=== PATIENT | male | born 1960 | race Caucasian/White ===

== ENCOUNTER 2020-12-21 15:34 | Emergency (ER) | payer OTHER, MEDICARE ==
[~2020-12-21] VITALS: Ht 190.5 cm; Wt 100.0 kg
[~2020-12-21 15:34] MED LIST: LORA-269 PO; LYR75C PO
[2020-12-21 18:52] LABS: BASOPHILS # (AUTO) 0.1 X10'3 (0-0.2); EOSINOPHILS # (AUTO) 0.1 X10'3 (0-0.9); EOSINOPHILS % (AUTO) 2.6 % (0-6); MEAN CORPUSCULAR HEMOGLOBIN 33.5 PG (27.0-31.0); MEAN CORPUSCULAR HGB CONC 34.4 g/dL (33.0-36.5); MEAN CORPUSCULAR VOLUME 97.4 FL (78-98); MEAN PLATELET VOLUME 7.3 FL (7.4-10.4); MONOCYTES # (AUTO) 0.8 X10'3 (0-0.9); MONOCYTES % (AUTO) 21.5 % (2-12); NEUTROPHILS # (AUTO) 1.7 X10'3 (1.8-7.7); NEUTROPHILS % (AUTO) 45.9 % (42-75); PLATELET COUNT 192 X10'3 (140-440); WHITE BLOOD COUNT 3.6 X10'3 (4.5-11.0)
[2020-12-21 19:13] LABS: ALANINE AMINOTRANSFERASE 180 U/L (12-78); ALBUMIN 3.5 G/DL (3.4-5.0); ALBUMIN/GLOBULIN RATIO 1.1 (1.1-1.5); ALKALINE PHOSPHATASE 145 IU/L (46-116); ANION GAP 11 (8-16); ASPARTATE AMINO TRANSFERASE 203 U/L (10-37); BILIRUBIN,TOTAL 0.5 MG/DL (0.1-1.0); BLOOD UREA NITROGEN 3 MG/DL (7-18); BUN/CREATININE RATIO 4.2 (5.4-32.0); CALCIUM 8.4 MG/DL (8.5-10.1); CHLORIDE 103 MMOL/L (99-107); CREATININE 0.72 MG/DL (0.60-1.10); GLUCOSE 116 MG/DL (70-104); POTASSIUM 3.5 MMOL/L (3.5-5.1); SODIUM 139 MMOL/L (135-145); TOTAL CARBON DIOXIDE 25.4 MMOL/L (24-32); TOTAL PROTEIN 6.8 G/DL (6.4-8.2); eGFR > 90 ML/MIN
[2020-12-21 19:34] LABS: CLARITY,URINE CLEAR (Clear); COLOR,URINE YELLOW (Yellow); GLUCOSE, URINE NEGATIVE (Neg); KETONES,URINE NEGATIVE (Neg); LEUKOCYTE ESTERASE ,URINE NEGATIVE (Neg); NITRITES, URINE NEGATIVE (Neg); OCCULT BLOOD,URINE NEGATIVE (Neg); PH,URINE 5.5 (4.8-8.0); PROTEIN,URINE NEGATIVE (Neg); UROBILINOGEN,URINE 0.2 E.U/dL (0.2-1.0)
[2020-12-21 19:35] LABS: UA COLLECTION TYPE URINAL
--- NOTE | 2020-12-21 19:36 | NUR ---
DIMITRI ROSENBERG AT BEDSIDE
[2020-12-21] MEDS ORDERED: pregabalin 75mg capsule PO ONE (19:50)
[2020-12-21] MEDS ORDERED: potassium Cl 20 mEq SR tablet PO ONE (19:50)
[2020-12-21] MEDS ORDERED: magnesium oxide 400mg tablet PO ONE (19:50)
[2020-12-21] MEDS ORDERED: chlordiazePOXIDE 25mg capsule PO ONE (19:50)
[2020-12-21] MEDS ORDERED: folic acid 1mg tablet PO ONE (19:50)
[2020-12-21 19:57] LABS: LARGE PLATELETS FEW; LYMPHOCYTES % (MANUAL) 24 % (21-51); NEUTROPHILS % (MANUAL) 55 % (42-75); TOTAL CELLS COUNTED 100
[2020-12-21 19:58] LABS: EOSINOPHILS % (MANUAL) 1 % (0-6); MONOCYTES % (MANUAL) 20 % (2-12); PLATELET ESTIMATE NORMAL
[2020-12-21 20:00] LABS: URINE AMPHETAMINE SCREEN NEGATIVE (Neg); URINE BARBITUATE SCREEN NEGATIVE (Neg); URINE BENZODIAZEPINES SCREEN NEGATIVE (Neg); URINE CANNABINOID SCREEN NEGATIVE (Neg); URINE COCAINE SCREEN NEGATIVE (Neg); URINE METHADONE SCREEN NEGATIVE (Neg); URINE OPIATE SCREEN NEGATIVE (Neg); URINE PHENCYCLIDINE SCREEN NEGATIVE (Neg)
[2020-12-21] MEDS ORDERED: thiamine 100mg tablet PO ONE (20:10)
[2020-12-21] MEDS ORDERED: CHLO25CA10 PO (20:11)
[2020-12-21 20:27] VITALS: BP 126/91
== END 2020-12-21 20:29 | disposition home or self-care (01) ==
LOC: ER 15:34
DX: F10.129 Alcohol abuse with intoxication, unspecified (principal); I10 Essential (primary) hypertension; I25.2 Old myocardial infarction; Z98.890 Other specified postprocedural states; Z79.899 Other long term (current) drug therapy; Y90.9 Presence of alcohol in blood, level not specified
CPT/HCPCS: 36415; 80053; 80305; 80320; 81003; 83735; 84443; 85007; 85025; 99284

== ENCOUNTER 2021-02-18 02:51 | Emergency (ER) | payer OTHER, MEDICARE ==
[~2021-02-18] VITALS: Ht 190.5 cm; Wt 97.7 kg
[~2021-02-18 02:51] MED LIST changes: +CHLO25CA10 PO
[2021-02-18 02:56] VITALS: BP 158/101
[2021-02-18] MEDS ORDERED: acetaminophen 325mg tablet PO ONE (03:30)
[2021-02-18] MEDS ORDERED: ketorolac tromethamine 15mg/ml inj. IM ONE (03:30)
== END 2021-02-18 03:42 | disposition home or self-care (01) ==
LOC: ER 02:52
DX: S93.402A Sprain of unspecified ligament of left ankle, initial encounter (principal); I10 Essential (primary) hypertension; I25.2 Old myocardial infarction; Z98.890 Other specified postprocedural states; Z87.891 Personal history of nicotine dependence; W19.XXXA Unspecified fall, initial encounter; Z91.81 History of falling; Y93.89 Activity, other specified; Y92.89 Other specified places as the place of occurrence of the external cause; Y99.8 Other external cause status
CPT/HCPCS: 73610; 96372; 99284; J1885

== ENCOUNTER 2021-04-26 18:11 | Emergency (ER) | payer MEDICARE, OTHER ==
[~2021-04-26] VITALS: Ht 190.5 cm; Wt 100.0 kg
[2021-04-26 18:12] VITALS: BP 127/93
[2021-04-26] MEDS ORDERED: normal saline 1000ML IV soln IVB ONE (18:35)
[2021-04-26 19:28] LABS: BASOPHILS # (AUTO) 0.1 X10'3 (0-0.2); BASOPHILS % (AUTO) 1.4 % (0-1); EOSINOPHILS # (AUTO) 0.4 X10'3 (0-0.9); EOSINOPHILS % (AUTO) 8.4 % (0-6); HEMATOCRIT 39.1 % (42.0-52.0); HEMOGLOBIN 13.3 g/dl (14.0-17.9); LYMPHOCYTES # (AUTO) 2.2 X10'3 (1.1-4.8); LYMPHOCYTES % (AUTO) 49.1 % (21-51); MEAN CORPUSCULAR HEMOGLOBIN 32.9 PG (27.0-31.0); MEAN CORPUSCULAR HGB CONC 34.1 g/dL (33.0-36.5); MEAN CORPUSCULAR VOLUME 96.4 FL (78-98); MEAN PLATELET VOLUME 7.4 FL (7.4-10.4); MONOCYTES # (AUTO) 0.3 X10'3 (0-0.9); MONOCYTES % (AUTO) 7.4 % (2-12); NEUTROPHILS # (AUTO) 1.5 X10'3 (1.8-7.7); NEUTROPHILS % (AUTO) 33.7 % (42-75); PLATELET COUNT 138 X10'3 (140-440); RED BLOOD COUNT 4.06 X10'6 (4.70-6.10); RED CELL DISTRIBUTION WIDTH 14.1 % (11.5-14.5); WHITE BLOOD COUNT 4.4 X10'3 (4.5-11.0)
[2021-04-26 19:39] LABS: ALANINE AMINOTRANSFERASE 75 U/L (12-78); ALBUMIN 3.6 G/DL (3.4-5.0); ALBUMIN/GLOBULIN RATIO 1.1 (1.1-1.5); ALKALINE PHOSPHATASE 89 IU/L (46-116); ANION GAP 12 (8-16); ASPARTATE AMINO TRANSFERASE 76 U/L (10-37); BILIRUBIN,TOTAL 0.3 MG/DL (0.1-1.0); BLOOD UREA NITROGEN 4 MG/DL (7-18); BUN/CREATININE RATIO 5.2 (5.4-32.0); CALCIUM 7.4 MG/DL (8.5-10.1); CHLORIDE 104 MMOL/L (99-107); CREATININE 0.77 MG/DL (0.60-1.10); GLUCOSE 106 MG/DL (70-104); POTASSIUM 3.7 MMOL/L (3.5-5.1); SODIUM 141 MMOL/L (135-145); TOTAL CARBON DIOXIDE 25.3 MMOL/L (24-32); eGFR > 90 ML/MIN
[2021-04-26 19:41] LABS: ETHANOL 0.423 GM/DL (0.0-0.010); MAGNESIUM 1.8 MG/DL (1.5-2.4)
== END 2021-04-26 20:49 | disposition home or self-care (01) ==
LOC: ER 18:12
DX: S00.01XA Abrasion of scalp, initial encounter (principal); R51.9 Headache, unspecified; I10 Essential (primary) hypertension; I25.2 Old myocardial infarction; Z79.899 Other long term (current) drug therapy; Z98.890 Other specified postprocedural states; W19.XXXA Unspecified fall, initial encounter; Y93.89 Activity, other specified; Y92.89 Other specified places as the place of occurrence of the external cause; Y99.8 Other external cause status; Y90.0 Blood alcohol level of less than 20 mg/100 ml
CPT/HCPCS: 36415; 70450; 72125; 80053; 80320; 83735; 85025; 99285; J7030

== ENCOUNTER 2021-08-25 07:29 | Emergency (ER) | payer OTHER, MEDICARE ==
[~2021-08-25] VITALS: Ht 190.5 cm; Wt 113.6 kg
[2021-08-25] MEDS ORDERED: aspirin 81mg tab.chew PO ONE (07:40)
[2021-08-25] MEDS ORDERED: nitroGLYCERIN 0.4mg SUBLingual tab SL PRN (07:40)
[2021-08-25] MEDS ORDERED: normal saline 1000ML IV soln IVB ONE (07:45)
[2021-08-25] MEDS ORDERED: phenobarbital inj 260 MG in normal saline 100ml IV soln 100 ML IV ONE (07:45)
[2021-08-25] MEDS ORDERED: thiamine 100mg tablet PO ONE (07:45)
[2021-08-25] MEDS ORDERED: magnesium oxide 400mg tablet PO ONE (07:45)
[2021-08-25] MEDS ORDERED: ondansetron/PF 4mg/2ml inj IV ONE (08:10)
[2021-08-25 08:22] LABS: BASOPHILS # (AUTO) 0.1 X10'3 (0-0.2); EOSINOPHILS # (AUTO) 0.1 X10'3 (0-0.9); EOSINOPHILS % (AUTO) 1.1 % (0-6); HEMOGLOBIN 16.2 g/dl (14.0-17.9); LYMPHOCYTES # (AUTO) 1.7 X10'3 (1.1-4.8); LYMPHOCYTES % (AUTO) 16.8 % (21-51); MEAN CORPUSCULAR HGB CONC 34.5 g/dL (33.0-36.5); MEAN CORPUSCULAR VOLUME 95.6 FL (78-98); MEAN PLATELET VOLUME 7.2 FL (7.4-10.4); MONOCYTES # (AUTO) 0.4 X10'3 (0-0.9); MONOCYTES % (AUTO) 4.4 % (2-12); NEUTROPHILS # (AUTO) 7.7 X10'3 (1.8-7.7); NEUTROPHILS % (AUTO) 76.7 % (42-75); PLATELET COUNT 254 X10'3 (140-440); RED BLOOD COUNT 4.91 X10'6 (4.70-6.10); RED CELL DISTRIBUTION WIDTH 14.8 % (11.5-14.5); WHITE BLOOD COUNT 10.1 X10'3 (4.5-11.0)
[2021-08-25 08:37] LABS: PARTIAL THROMBOPLASTIN TIME 28 SECONDS (22-32)
[2021-08-25 08:51] LABS: ALANINE AMINOTRANSFERASE 113 U/L (12-78); ALBUMIN/GLOBULIN RATIO 1.1 (1.1-1.5); ALKALINE PHOSPHATASE 108 IU/L (46-116); ANION GAP 18 (8-16); ASPARTATE AMINO TRANSFERASE 102 U/L (10-37); BILIRUBIN,TOTAL 0.5 MG/DL (0.1-1.0); BLOOD UREA NITROGEN 8 MG/DL (7-18); BUN/CREATININE RATIO 9.2 (5.4-32.0); CALCIUM 8.4 MG/DL (8.5-10.1); CHLORIDE 100 MMOL/L (99-107); CREATININE 0.87 MG/DL (0.60-1.10); ETHANOL 0.151 GM/DL (0.0-0.010); GLUCOSE 94 MG/DL (70-104); POTASSIUM 3.7 MMOL/L (3.5-5.1); SODIUM 141 MMOL/L (135-145); TOTAL CARBON DIOXIDE 23.5 MMOL/L (24-32); TOTAL PROTEIN 7.7 G/DL (6.4-8.2); eGFR 89 ML/MIN
[2021-08-25] MEDS ORDERED: phenobarbital inj 130 MG in normal saline 100ml IV soln 100 ML IV ONE (09:10)
[2021-08-25 09:17] VITALS: BP 153/91
--- NOTE | 2021-08-25 10:39 | NUR ---
PATIENT GAIT TESTED PER FABRICS AND MATERIAL CUTTER. WALKED APPROX 15-20 FEET, COMPLAINING OF WEAKNESS DURING ACTIVITY. STANDBY ASSISTED BACK TO [facility].
[2021-08-25] MEDS ORDERED: ONDA4TAB6 PO (10:50)
--- NOTE | 2021-08-25 11:00 | NUR ---
PT IS CALLING FOR HIS RIDE.
== END 2021-08-25 13:58 | disposition home or self-care (01) ==
LOC: ER 07:29
DX: F10.129 Alcohol abuse with intoxication, unspecified (principal); F10.139 Alcohol abuse with withdrawal, unspecified; I10 Essential (primary) hypertension; I25.2 Old myocardial infarction; Z79.899 Other long term (current) drug therapy; Y90.6 Blood alcohol level of 120-199 mg/100 ml
CPT/HCPCS: 36415; 71045; 80053; 80320; 83735; 83880; 84484; 85025; 85610; 85730; 93005; 96365; 96367; 96375; 99285; J2405; J2560; J3490; J7030; 99284